=== PATIENT | male | born 1935 | race Caucasian/White ===

== ENCOUNTER 2023-07-13 15:38 | Inpatient (IN) | payer OTHER ==
[~2023-07-13] VITALS: Ht 167.6 cm; Wt 66.6 kg
[2023-07-13 18:27] LABS: Basophils # (auto) 0.1 10 ^3/uL (0-0.2); Basophils % (auto) 0.6 % (0.0-2.0); Eosinophils # (auto) 0.1 10 ^3/uL (0-0.8); Eosinophils % (auto) 0.7 % (0.0-7.0); Hematocrit 32.6 % (41.0-53.0); Hemoglobin 10.6 g/dL (13.5-17.5); Lymphocytes % (auto) 9.9 % (10.0-50.0); Mean Corpuscular Hemoglobin 28.4 pg (28.0-32.0); Mean Corpuscular Hgb Conc. 32.6 g/dL (32.0-36.0); Mean Corpuscular Volume 87.3 fL (80.0-100.0); Monocytes % (auto) 9.5 % (0.0-12.0); Neutrophils # (auto) 8.3 10 ^3/uL (1.6-8.6); Neutrophils % (auto) 79.3 % (37.0-80.0); Red Blood Cells 3.73 10^6/uL (4.5-5.90); Red Cell Distribution Width 15.4 % (11.8-14.3); White Blood Cell 10.5 10^3/uL (4.4-10.8)
[2023-07-13 18:41] LABS: Chloride 99 mmol/L (98-107); Potassium 4.4 mmol/L (3.5-5.1); Sodium 133 mmol/L (136-145)
[2023-07-13 18:42] LABS: Anion Gap 9 (5-15); Carbon Dioxide 25 mmol/L (20-30)
[2023-07-13 18:43] LABS: Calcium 8.7 mg/dL (8.7-10.4)
[2023-07-13 18:47] LABS: BUN/Creatinine Ratio 36.8 (10.0-20.0); Blood Urea Nitrogen 42 mg/dL (9-23); Glucose 119 mg/dL (74-106)
[2023-07-13 21:46] VITALS: PULSE 84; RESP 16; O2SAT 95
[2023-07-14 05:00] VITALS: PULSE 89; RESP 10; O2SAT 95
[2023-07-14] MEDS ORDERED: ONDANSETRON HCL 4 MG/2 ML VIAL IV PRN (06:15)
[2023-07-14] MEDS ORDERED: HYDROcodone-ACET 5/325MG TAB PO PRN (06:15)
[2023-07-14] MEDS ORDERED: TEMAZEPAM 15 MG CAP PO PRN (06:15)
[2023-07-14] MEDS ORDERED: DEXTROSE (50%) 50ML SYRG IV PRN (06:15)
[2023-07-14] MEDS ORDERED: ACETAMINOPHEN 325 MG TAB PO PRN (06:15)
[2023-07-14 06:58] LABS: Basophils # (auto) 0.1 10 ^3/uL (0-0.2); Basophils % (auto) 0.6 % (0.0-2.0); Eosinophils # (auto) 0 10 ^3/uL (0-0.8); Eosinophils % (auto) 0.3 % (0.0-7.0); Hematocrit 31.9 % (41.0-53.0); Hemoglobin 10.7 g/dL (13.5-17.5); Lymphocytes # (auto) 0.8 10 ^3/uL (0.4-5.4); Lymphocytes % (auto) 8.5 % (10.0-50.0); Mean Corpuscular Hgb Conc. 33.5 g/dL (32.0-36.0); Mean Corpuscular Volume 86.5 fL (80.0-100.0); Monocytes # (auto) 0.9 10 ^3/uL (0-1.3); Monocytes % (auto) 9.5 % (0.0-12.0); Neutrophils # (auto) 7.4 10 ^3/uL (1.6-8.6); Neutrophils % (auto) 81.1 % (37.0-80.0); Nucleated Red Blood Cells % 0.1 %; Red Blood Cells 3.68 10^6/uL (4.5-5.90); Red Cell Distribution Width 15.6 % (11.8-14.3); White Blood Cell 9.1 10^3/uL (4.4-10.8)
[2023-07-14 07:02] LABS: Chloride 100 mmol/L (98-107); Potassium 3.9 mmol/L (3.5-5.1); Sodium 135 mmol/L (136-145)
[2023-07-14 07:03] LABS: Anion Gap 8 (5-15); Calcium 9.1 mg/dL (8.7-10.4); Carbon Dioxide 27 mmol/L (20-30)
[2023-07-14] MEDS: InsuLIN REG 1unit/0.01ml Soln (100units/ml) SC SCH (07:06)
[2023-07-14] MEDS: ACCU-CHEK COMFORT CURVE STRIP VI SCH (07:06)
[2023-07-14 07:08] LABS: BUN/Creatinine Ratio 36.7 (10.0-20.0); Blood Urea Nitrogen 36 mg/dL (9-23); Glucose 175 mg/dL (74-106)
[2023-07-14 09:37] VITALS: BP 116/62; PULSE 88; RESP 17; TEMP 97.7; O2SAT 95
[2023-07-14] MEDS: EMPAGLIFLOZIN 10 MG TAB PO SCH (10:02)
[2023-07-14] MEDS: LOSARTAN POTASSIUM 50 MG TAB PO SCH (10:02)
[2023-07-14] MEDS: FUROSEMIDE 40 MG TAB PO SCH (10:03)
[2023-07-14] MEDS: ENOXAPARIN SOD 40 MG/0.4 ML SYRINGE SC SCH (10:03)
[2023-07-14 10:18] VITALS: BP 116/62; PULSE 88; RESP 17; TEMP 97.7; O2SAT 95
[2023-07-14 11:13] LABS: Hepatitis B Surface Antigen Negative (Negative)
[2023-07-14 11:34] LABS: Hepatitis C Antibody Negative (Negative)
[2023-07-14 13:40] VITALS: RESP 18
[2023-07-14 16:00] VITALS: BP 111/55; PULSE 82; RESP 18; TEMP 98.4; O2SAT 94
[2023-07-14 21:00] VITALS: BP 88/62; PULSE 69; RESP 16; TEMP 98.4; O2SAT 95
[2023-07-14] MEDS: ATORVASTATIN 20 MG TAB PO SCH (23:50)
[2023-07-15 09:00] VITALS: BP 112/73; PULSE 84; RESP 18; TEMP 97.8; O2SAT 92
[2023-07-15 13:00] VITALS: BP 95/44; PULSE 81; RESP 14; TEMP 98.7; O2SAT 93
[2023-07-15] MEDS: IOHEXOL 350 MG/ML 100ML IJ ONE (13:42)
[2023-07-15 17:00] VITALS: BP 110/58; PULSE 82; RESP 16; TEMP 97.5; O2SAT 92
[2023-07-15 20:00] VITALS: PULSE 75; RESP 14
[2023-07-15 21:00] VITALS: BP 94/50; PULSE 75; RESP 14; TEMP 97.9; O2SAT 92
[2023-07-16 01:33] VITALS: BP_SYST 106; BP_SYST 123; BP_DIAS 40; BP_DIAS 63; PULSE 61; PULSE 91; RESP 16; TEMP 97.6; O2SAT 94; O2SAT 96
[2023-07-16 05:00] VITALS: BP 90/45; PULSE 81; RESP 16; TEMP 98; O2SAT 92
[2023-07-16 09:00] VITALS: BP 97/55; PULSE 110; RESP 17; TEMP 97.7; O2SAT 97
[2023-07-16 13:00] VITALS: BP 128/61; PULSE 78; RESP 19; TEMP 98.4; O2SAT 96
[2023-07-16 17:00] VITALS: BP 120/72; PULSE 76; RESP 18; TEMP 98.4; O2SAT 92
[2023-07-16 21:00] VITALS: BP 108/49; PULSE 74; RESP 18; TEMP 98.1; O2SAT 91
[2023-07-17 01:00] VITALS: BP 122/52; PULSE 79; RESP 18; TEMP 98.1; O2SAT 90
[2023-07-17 05:00] VITALS: BP 130/54; PULSE 69; RESP 18; TEMP 97.8; O2SAT 93
[2023-07-17 09:00] VITALS: BP 129/56; PULSE 75; RESP 18; TEMP 97.7; O2SAT 95
[2023-07-17 12:59] VITALS: BP 121/55; PULSE 85; RESP 18; TEMP 98; O2SAT 95
[2023-07-17 16:49] VITALS: BP 131/51; PULSE 72; RESP 18; TEMP 98.2; O2SAT 95
[2023-07-17 21:00] VITALS: BP 94/54; PULSE 80; RESP 20; TEMP 98.1; O2SAT 95
[2023-07-18 01:00] VITALS: BP 132/65; PULSE 78; RESP 18; TEMP 97.7; O2SAT 94
[2023-07-18 05:00] VITALS: BP 107/50; PULSE 75; RESP 18; TEMP 98.7; O2SAT 93
[2023-07-18 08:44] VITALS: BP 100/49; PULSE 76; RESP 16; TEMP 98.2; O2SAT 92
[2023-07-18 13:00] VITALS: BP 121/61; PULSE 104; RESP 17; TEMP 98.1; O2SAT 94
[2023-07-18 16:21] VITALS: BP 110/68; TEMP 36.7
[2023-07-18 16:54] VITALS: BP 110/55; PULSE 102; RESP 19; TEMP 98.1; O2SAT 96
== END 2023-07-18 16:30 | disposition home or self-care (01) | DRG 301 ==
LOC: EDBD 15:38 → ER 15:38 → OVERFLOW 07-14 06:19 → TELE-E-ADS 07-14 10:09 → EAST 07-14 10:10 → CENTRAL 07-14 15:14
PROVIDERS: ADMIT Nurse Practitioner; ATTEND Internal Medicine
DX: E11.51 Type 2 diabetes mellitus with diabetic peripheral angiopathy without gangrene (principal); I11.0 Hypertensive heart disease with heart failure; I50.9 Heart failure, unspecified; J44.9 Chronic obstructive pulmonary disease, unspecified; D64.9 Anemia, unspecified; Z68.23 Body mass index [BMI] 23.0-23.9, adult; Z79.4 Long term (current) use of insulin; Z79.899 Other long term (current) drug therapy; Z88.8 Allergy status to other drugs, medicaments and biological substances
CPT/HCPCS: 36415; 73706; 80048; 82962; 83880; 85025; 86803; 87340; 93005; 93925; 93970; 97110; 97116; 97163; 97530; G0378; J1815